=== PATIENT | male | born 1965 | race Caucasian/White ===

== ENCOUNTER 2023-03-09 18:18 | Emergency (ER) | payer OTHER, SELFPAY ==
[2023-03-09] VITALS (10 sets, daily range): BP systolic 129–157; BP diastolic 79–98; PULSE 65–78; RESP 20; TEMP 36.9; O2SAT 96–100; BMI 30.8
--- NOTE | 2023-03-09 19:11 | CRLHL7_ITS ---
For Patients: As a result of the Cures Act, medical imaging exams and procedure reports are released immediately into your electronic medical record. You may view this report before your referring provider. If you have questions, please contact your health care provider. INDICATION: Fall, Mid back pain COMPARISON: None. TECHNIQUE: Two view lumbar spine radiographs including AP, lateral. T10 through the upper sacrum is included in the field of view. FINDINGS: There are 5 lumbar type vertebral bodies. No acute fracture or dislocation. Normal alignment. The disc spaces are normal. No dynamic instability. No neural foraminal stenosis. The included portions of the sacroiliac joints are normal. Normal bone mineralization. No focal bone lesions. IMPRESSION: Normal lower thoracic and lumbar spine radiographs. Dictated by Larissa Skinner MD @ 03/09/2023 7:58:06 PM (Electronically Signed)
--- NOTE | 2023-03-09 19:26 | ED.GENADULT ---
HPI - General Adult General Chief complaint: Back Injury/Pain Stated complaint: Fell down flight of stairs, had a seizure after Time Seen by Provider: 03/09/23 18:51 History of Present Illness HPI narrative: This 57-year-old male comes in for evaluation of injury after falling down some steps. He slipped on steps and bounce down several of them along the way. He had severe back pain but was able to get up and ambulate to a couch. While he was sitting there he had loss of consciousness briefly during which time there was some involuntary movements. His 19-year-old daughter thought he might be having a seizure. He recovered from this rather quickly and did not have any postictal symptoms. He comes in here reporting pain in the mid to lower back but does not have any other injury. He does not report any pain with taking a deep breath. He did not hit his head. He states that he felt like he had the wind knocked out of him when he went over to the couch and this was contributing to his loss of consciousness. Review of Systems Status of ROS: Reports: 10 or more systems reviewed and unremarkable except as noted in History and below Narrative: Constitutional: No fevers, no weight gain or loss. Eyes: No discharge. No vision changes. HENT: No congestion, no sore throat, no ear pain. Cardiovascular: No chest pain, no palpitations. Respiratory: No shortness of breath, no wheezes, no cough. Gastrointestinal: No abdominal pain, no vomiting, no diarrhea. Genitourinary: No dysuria, no hematuria. Musculoskeletal: Normal range of motion. Pain in the mid to lower back. Skin: No rashes, no pruritis. Neurological: No dizziness, weakness, sensory change, speech change. Endo/Heme/Allergies: No bruising or bleeding. No polydipsia. Pysch: no suicidality, no anxiety, no insomnia. All other systems reviewed and are negative. PFSH PFS Social History Smoking Status: Never smoker How often do you have a drink containing alcohol: 2-3 times a week How many standard drinks containing alcohol do you have on a typical day: 1 or 2 How often do you have six or more drinks on one occasion: Never AUDIT-C Alcohol total score: 3 Non-prescribed substance use: denies use Exam Narrative: Exam Narrative: Constitutional: Well-developed, well-nourished, no acute distress. HEENT: Normocephalic, atraumatic. Neck: Normal range of motion. Nontender. Supple. Heart: Regular. No murmurs. Normal rate. Intact distal pulses. Lungs: Clear to auscultation. No chest discomfort. No wheezes, rhonchi, or rales. Abdomen: Normal bowel sounds. Nontender. No rebound tenderness. Genitalia: Deferred. Extremities: Normal range of motion. No injury. Skin: Intact. No rash. Warm. No erythema or pallor. Neurologic: No altered sensation. No weakness. Alert and oriented. Psychiatric: No suicidality. No anxiety or depression. No insomnia. Nursing notes and vitals signs are reviewed. Const: Vital Signs, click to edit/add: Vital Signs - 24 hr 03/09/23 18:42 03/09/23 18:55 03/09/23 19:25 Temperature 98.4 F Pulse Rate [Left P ulse Oximeter] 70 Pulse Rate [orthos tatic lying] 68 Pulse Rate [orthos tatic sitting] 77 Pulse Rate [orthos tatic standing] 75 Respiratory Rate 20 Blood Pressure [Ri ght Upper Arm] 130/82 Blood Pressure [or thostatic lying] 129/79 Blood Pressure [or thostatic sitting] 136/83 Blood Pressure [or thostatic standing ] 139/85 Pulse Oximetry 97 96 Oxygen Delivery Me thod Room Air Course Vital Signs Vital signs: Initial Vital Signs Temperature 98.4 F 03/09/23 18:42 Temperature Source Temporal Artery Scan 03/09/23 18:42 Pulse Rate 70 03/09/23 18:42 Pulse Rhythm Regular 03/09/23 18:42 Pulse Strength 3+ Normal 03/09/23 18:42 Respiratory Rate 20 03/09/23 18:42 Blood Pressure 130/82 03/09/23 18:42 Blood Pressure Mean 98 03/09/23 18:42 Blood Pressure Position Supine 03/09/23 18:42 Pulse Oximetry 97 03/09/23 18:42 Oxygen Delivery Method Room Air 03/09/23 18:42 Vital Signs Temperature 98.4 F 03/09/23 18:42 Pulse Rate 70 03/09/23 18:42 Respiratory Rate 20 03/09/23 18:42 Blood Pressure 130/82 03/09/23 18:42 Pulse Oximetry 97 03/09/23 18:42 Oxygen Delivery Method Room Air 03/09/23 18:42 Temperature 98.4 F 03/09/23 18:42 Pulse Rate 68 03/09/23 19:25 Respiratory Rate 20 03/09/23 18:42 Blood Pressure 129/79 03/09/23 19:25 Pulse Oximetry 96 03/09/23 18:55 Oxygen Delivery Method Room Air 03/09/23 18:42 Medical Decision Making MDM Narrative Medical decision making narrative: This patient comes in for evaluation of a syncopal event that occurred after a fall on some steps. There was some concern that he might have had a seizure however there was no postictal symptoms nor was there tonic clonic activity. The patient has pain in his middle back but otherwise feels back to normal. He arrives here with normal vital signs. I did discuss lab and imaging options and was agreed to check an x-ray of his spine which returns with no acute findings. The patient did have orthostatic blood pressures done and these returned with normal reassuring findings. The patient likely had a syncopal event related to the pain of the fall and as he states losing his breath temporarily. He is okay to return home. He received prescription for Toradol and Flexeril from the [facility]. Imaging Data XR Thoracolumbar Spine: Radiologist's impression: Normal lower thoracic and lumbar spine radiographs. ECG Data Attestation: I personally reviewed and interpreted this ECG as follows: Interpretation: Normal sinus rhythm. Rate is 70 beats per minute. There are no ST or T-wave abnormalities. Discharge Plan Discharge Clinical Impression: Back contusion Patient Disposition: Home, Self-Care Condition: Stable Additional Instructions: Take medication as needed and indicated. Follow up with MD return if worsening. Follow Up/Referrals: Gonzalo Montano MD [Primary Care Provider] - Stand Alone Forms: [employer] Info Instructions
== END 2023-03-09 20:25 | disposition home or self-care (01) ==
PROVIDERS: Emergency Provider Emergency Medicine Emergency Medical Services; PCP Surgery
DX: S30.0XXA Contusion of lower back and pelvis, initial encounter (principal); W10.9XXA Fall (on) (from) unspecified stairs and steps, initial encounter
CPT/HCPCS: 36415; 72080; 94761; 99284

== ENCOUNTER 2024-09-26 10:40 | Outpatient (CLI) | payer OTHER, SELFPAY ==
--- NOTE | 2024-09-26 12:19 | P.ANES_ITS ---
Anesthesia Charges Start Date/Time Anesthesia Start Date: 09/26/24 Anesthesia Start Time: 11:50 Stop Date/Time Anesthesia Stop Date: 09/26/24 Anesthesia Stop Time: 12:15 Coding CPT Codes CPT Codes: AYDEN LWR INTST SCR COLSC - 53682 ([id number]) P2 - PATIENT W/MILD SYST DISEASE, QK - SUPERVISOR SEWER MAINTENANCE 2-4 CNCRNT ANES PROC, QX - DENTAL INSURANCE BILLER SVC W/ MD MED DIRECTION
--- NOTE | 2024-09-26 12:19 | W.ANESCHARGE ---
Anesthesia Charges Start Date/Time Anesthesia Start Date: 09/26/24 Anesthesia Start Time: 11:50 Stop Date/Time Anesthesia Stop Date: 09/26/24 Anesthesia Stop Time: 12:15 Coding CPT Codes CPT Codes: AYDEN LWR INTST SCR COLSC - [id number] ([id number]) P2 - PATIENT W/MILD SYST DISEASE, QK - MARITIME PILOT 2-4 CNCRNT ANES PROC, QX - PAPER TWISTER SVC W/ MD MED DIRECTION
--- NOTE | 2024-09-26 12:32 | P.ANES_ITS ---
Anesthesia Charges Start Date/Time Anesthesia Start Date: 09/26/24 Anesthesia Start Time: 11:50 Stop Date/Time Anesthesia Stop Date: 09/26/24 Anesthesia Stop Time: 12:15 Coding CPT Codes CPT Codes: AYDEN LWR INTST SCR COLSC - [id number] ([id number]) P2 - PATIENT W/MILD SYST DISEASE, QK - LAN SUPPORT SPECIALIST 2-4 CNCRNT ANES PROC, QX - VETERINARY TECHNICIAN ASSISTANT SVC W/ MD MED DIRECTION
--- NOTE | 2024-09-26 12:32 | W.ANESCHARGE ---
Anesthesia Charges Start Date/Time Anesthesia Start Date: 09/26/24 Anesthesia Start Time: 11:50 Stop Date/Time Anesthesia Stop Date: 09/26/24 Anesthesia Stop Time: 12:15 Coding CPT Codes CPT Codes: AYDEN LWR INTST SCR COLSC - [id number] ([id number]) P2 - PATIENT W/MILD SYST DISEASE, QK - TRANSMISSION AND COORDINATION ENGINEER 2-4 CNCRNT ANES PROC, QX - INSPECTOR WELDED PARTS SVC W/ MD MED DIRECTION
== END 2024-09-26 10:41 | disposition home or self-care (01) ==
PROVIDERS: PCP Surgery; Visit Provider Internal Medicine Gastroenterology
DX: Z12.11 Encounter for screening for malignant neoplasm of colon (principal); Z86.0101 Personal history of adenomatous and serrated colon polyps
CPT/HCPCS: 00812; 45378

== ENCOUNTER 2024-10-29 16:45 | Outpatient (RCR) | payer OTHER, SELFPAY | END 2025-01-30 08:37 | disposition home or self-care (01) | PROVIDERS: PCP Surgery; Visit Provider Surgery | DX: M25.512 Pain in left shoulder (principal); Z51.89 Encounter for other specified aftercare | CPT/HCPCS: 97110; 97140; 97161 ==